=== PATIENT | female | born 1985 | race Caucasian/White ===

== ENCOUNTER 2019-05-06 16:21 | Emergency (ER) | payer OTHER ==
[2019-05-06 17:13] LABS: BILIRUBIN,URINE NEGATIVE (NEGATIVE); GLUCOSE, URINE (UA) NEGATIVE (NEGATIVE); KETONES,URINE (UA) NEGATIVE (NEGATIVE); LEUKOCYTE ESTERASE, URINE NEGATIVE (NEGATIVE); NITRITE,URINE NEGATIVE (NEGATIVE); OCCULT BLOOD,URINE NEGATIVE (NEGATIVE); PH,URINE 6.5 PH (5.0-7.5); PROTEIN,URINE NEGATIVE (NEGATIVE); UROBILINOGEN,URINE 0.2 (NORMAL) E.U./dL (NORMAL)
[2019-05-06 17:14] LABS: BASOPHILS # (AUTO) 0.1 10^3/uL (0.0-0.1); BASOPHILS % (AUTO) 0.5 %; EOSINOPHILS # (AUTO) 0.2 10^3/uL (0.0-0.7); EOSINOPHILS % (AUTO) 1.7 %; HGB - HEMOGLOBIN 14.3 g/dL (12.0-16.0); LYMPHOCYTES # (AUTO) 2.5 10^3/uL (1.5-3.5); LYMPHOCYTES % (AUTO) 27.2 %; MEAN CORPUSCULAR HGB CONC 34.4 g/dL (32.0-36.0); MEAN CORPUSCULAR VOLUME 90.2 fL (81.0-99.0); MEAN PLATELET VOLUME 11.6 fL (7.9-10.8); MONOCYTES # (AUTO) 0.5 10^3/uL (0.0-1.0); MONOCYTES % (AUTO) 5.6 %; NEUTROPHILS % (AUTO) 64.6 %; PLT - PLATELET COUNT 202 10^3/uL (130-450); RED BLOOD COUNT 4.61 10^6/uL (4.20-5.40); RED CELL DISTRIBUTION WIDTH 11.9 % (12.0-15.0); WHITE BLOOD COUNT 9.4 x10^3/uL (4.8-10.8)
[2019-05-06 17:16] LABS: CLARITY,URINE CLEAR (CLEAR)
[2019-05-06 17:19] LABS: HCG UR QUAL NEGATIVE
[2019-05-06 17:25] LABS: ALBUMIN 4.1 g/dL (3.2-5.5); ALBUMIN/GLOBULIN RATIO 1.1 (1.0-2.2); BILIRUBIN,TOTAL 0.3 mg/dL (0.2-1.0); CALCIUM 8.9 mg/dL (8.5-10.3); CREATININE 0.7 mg/dL (0.4-1.0); TOTAL PROTEIN 7.8 g/dL (6.7-8.2)
[2019-05-06] MEDS ORDERED: KETOROLAC 60 MG/2 ML VIAL IM STA (18:12)
--- NOTE | 2019-05-06 18:13 | ED Physician Documentation ---
PD HPI ABD PAIN - Stated complaint Stated Complaint: RT ABD PX - Chief complaint Chief Complaint: Abd Pain - History obtained from History obtained from: Patient - History of Present Illness Timing - onset: Other (This is a very pleasant 34-year-old woman who presents with sudden onset right pelvic pain starting yesterday with nausea. She has a history of remote appendectomy, cholecystectomy. No history of ovarian cyst. Because of potential psychiatric stress she is been amenorrheic for the last 5 months. She has no concern for STDs.) Review of Systems Constitutional: denies: Fever, Chills GI: reports: Abdominal Pain, Nausea. denies: Vomiting, Constipation, Diarrhea : denies: Dysuria, Frequency PD PAST MEDICAL HISTORY - Present Medications Home Medications: Ambulatory Orders Medication Instructions Recorded Confirmed Ibuprofen [Motrin] 800 mg PO Q8H PRN #30 tablet 05/06/19 Ondansetron Odt [Zofran] 4 mg TL Q6H PRN #10 tablet 05/06/19 Oxycodone HCl/Acetaminophen 1 - 2 each PO Q6H PRN #14 tablet 05/06/19 [Percocet 5-325 mg Tablet] - Allergies Allergies/Adverse Reactions: Allergies Allergy/AdvReac Type Severity Reaction Status Date / Time clindamycin Allergy Anaphylaxis Verified 05/06/19 16:51 levofloxacin Allergy Unknown Verified 05/06/19 16:51 Penicillins Allergy Unknown Verified 05/06/19 16:51 PD ED PE NORMAL - Vitals Vital signs reviewed: Yes - General General: Alert and oriented X 3, No acute distress - HEENT HEENT: PERRL, EOMI - Neck Neck: Supple, no meningeal sign, No bony TTP - Cardiac Cardiac: RRR, No murmur - Respiratory Respiratory: No respiratory distress, Clear bilaterally - Abdomen Abdomen: Other (Tender in the deep left pelvis without surgical signs, very mild right lower quadrant and right-sided abdominal tenderness) - Back Back: No CVA TTP, No spinal TTP - Derm Derm: Normal color, Warm and dry - Extremities Extremities: No edema, No calf tenderness / cord - Neuro Neuro: Alert and oriented X 3, Normal speech Results - Vitals Vitals: Vital Signs - 24 hr 05/06/19 05/06/19 05/06/19 16:48 18:15 20:00 Temperature 36.8 C Heart Rate 89 67 66 Respiratory 18 14 14 Rate Blood Pressure 144/93 H 141/83 H 136/82 H O2 Saturation 99 100 100 Oxygen O2 Source Room air - Labs Labs: Laboratory Tests 05/06/19 05/06/19 05/06/19 17:02 17:06 17:06 WBC 9.4 RBC 4.61 Hgb 14.3 Hct 41.6 MCV 90.2 MCH 31.0 MCHC 34.4 RDW 11.9 L Plt Count 202 MPV 11.6 H Neut # (Auto) 6.0 Lymph # (Auto) 2.5 [place] # (Auto) 0.5 Eos # (Auto) 0.2 Baso # (Auto) 0.1 Absolute Nucleated RBC 0.00 Nucleated RBC % 0.0 Sodium 138 Potassium 3.8 Chloride 105 Carbon Dioxide 23 Anion Gap 10.0 BUN 16 Creatinine 0.7 Estimated GFR (MDRD) 97 Glucose 96 Calcium 8.9 Total Bilirubin 0.3 AST 29 ALT 32 Alkaline Phosphatase 52 Total Protein 7.8 Albumin 4.1 Globulin 3.7 Albumin/Globulin Ratio 1.1 Lipase 39 Urine Color YELLOW Urine Clarity CLEAR Urine pH 6.5 Ur Specific [place] 1.020 Urine Protein NEGATIVE Urine Glucose (UA) NEGATIVE Urine Ketones NEGATIVE Urine Occult Blood NEGATIVE Urine Nitrite NEGATIVE Urine Bilirubin NEGATIVE Urine Urobilinogen 0.2 (NORMAL) Ur Leukocyte Esterase NEGATIVE Ur Microscopic Review NOT INDICATED Urine Culture Comments NOT INDICATED Urine HCG, Qual NEGATIVE - Rads (name of study) Pelvic sono Radiology: EMP read contemporaneously (Simple 3.6 cm right ovarian cyst. Unable to visualize the left ovary, normal uterus.) PD MEDICAL DECISION MAKING - ED course ED course: This young woman with right pelvic pain, she does not have an appendix or gallbladder. Found to have a 4 x 3 cm Right ovarian cyst without evidence of torsion. Departure - Departure Disposition: Home, Self Care Clinical Impression: Right ovarian cyst Condition: Good Record reviewed to determine appropriate education?: Yes Instructions: ED Cyst Ovarian Follow-Up: [facility] [Provider Group] Prescriptions: Ibuprofen [Motrin] 800 mg PO Q8H PRN #30 tablet PRN Reason: PAIN &/OR FEVER Ondansetron Odt [Zofran] 4 mg TL Q6H PRN #10 tablet PRN Reason: Nausea / Vomiting Oxycodone HCl/Acetaminophen [Percocet 5-325 mg Tablet] 1 - 2 each PO Q6H PRN #14 tablet PRN Reason: pain Comments: Will need a repeat ultrasound in about a month to confirm resolution of the cyst. Return for new or worsening symptoms. 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 Do not drink or drive while taking narcotic pain medication. Note that many narcotic pain relievers also contain Tylenol/acetaminophen. Please ensure that your total dose of acetaminophen from all sources does not exceed 3 g (3000 mg) per day. You may get constipated while on this medication. Take a stool softener such as Colace twice a day while you are on it. Also add an nqlu-rnt-jikqims laxative such as senna or MiraLAX on any day that you do not have a bowel movement. If you received a narcotic pain medication or sedative while in the emergency department, do not drive for the next 24 hours. Your blood pressure was elevated today on check into the emergency department. This does not mean that you have hypertension, it is a common phenomenon to come to the emergency department and have elevated blood pressure. I recommend that you see your primary care physician within the week to have it rechecked when you are feeling better. Forms: Activity restrictions Discharge Date/Time: 05/06/19 20:03
[2019-05-06] MEDS ORDERED: ONDANSETRON ODT 4 MG TABLET TL STA (18:21)
--- NOTE | 2019-05-06 19:50 | Ultrasound Report ---
Reason: pelvic pain, R Procedure Date: 05/06/2019 Accession Number: [id number] / [id number] Procedure: US - Pelvic w/Transvag+Doppler Comp CPT Code: FULL RESULT: EXAM: PELVIC ULTRASOUND WITH DOPPLERS CLINICAL HISTORY: Pelvic pain, right. COMPARISON: None. TECHNIQUE: Realtime transabdominal imaging performed to identify the uterus and adnexa and as an overview of other pelvic structures, followed by transvaginal imaging for better assessment of the endometrium and adnexa, with static image documentation. Color flow imaging and Doppler spectral analysis was performed to evaluate blood flow to the ovaries given pelvic pain and clinical concern for ovarian torsion. FINDINGS: Uterus: 8.0 x 3.8 x 4.9 cm, volume 78 cc. Anteverted position. Normal overall size and echotexture. Masses: None. Endometrium: 11.6 mm. Normal. Cervix: Unremarkable. Right Ovary: 4.1 x 3.5 x 3.4 cm, volume 25.5 cc. There is a 3.6 cm simple ovarian cyst. Arterial and venous blood flow are present. PSV 5.0 cm/sec. RI 0.55. Adnexa are unremarkable. Left Ovary: Not visualized. Free Fluid: None. Other: None. IMPRESSION: 1. Simple 3.6 cm right ovarian cyst. 2. Nonvisualization of left ovary. 3. Normal uterus. RADIA
[2019-05-06] MEDS ORDERED: oxyCODONE/ACET 5/325 Prepack 4 PO STA (19:53)
[2019-05-06] MEDS ORDERED: ONDANSETRON ODT 4 MG Prepack 2 TL STA (19:53)
[2019-05-06 20:03] VITALS: BP 136/82
== END 2019-05-06 20:03 | disposition home or self-care (01) ==
LOC: ED 16:21
DX: N83.201 Unspecified ovarian cyst, right side (principal); R03.0 Elevated blood-pressure reading, without diagnosis of hypertension
CPT/HCPCS: 36415; 76830; 76856; 80053; 81003; 81025; 83690; 85025; 93975; 96372; 99283; 99284; Q0162; 81001; 87086

== ENCOUNTER 2019-05-17 16:24 | Outpatient (CLI) | payer OTHER ==
[2019-05-17 21:49] LABS: TRICHOMONAS VAGINALIS DNA NEGATIVE (NEGATIVE)
== END 2019-05-17 23:59 | disposition home or self-care (01) ==
LOC: LAB.R 16:24
PROVIDERS: ATTEND Obstetrics & Gynecology
DX: Z11.3 Encounter for screening for infections with a predominantly sexual mode of transmission (principal)
CPT/HCPCS: 87491; 87591; 87661

== ENCOUNTER 2019-05-25 10:55 | Outpatient (CLI) | payer OTHER ==
[2019-05-25] MEDS ORDERED: IOVERSOL 320 50 ML VIAL ONE (11:14)
[2019-05-25] MEDS ORDERED: IOVERSOL 320 100 ML VIAL IVP ONE ×2 (11:14→15:46)
[2019-05-25] MEDS ORDERED: IOVERSOL 320 50 ML VIAL PO ONE (15:46)
--- NOTE | 2019-05-25 17:37 | CT Report ---
Reason: PELVIC PAIN Procedure Date: 05/25/2019 Accession Number: [id number] / [id number] Procedure: CT - Abdomen/Pelvis W CPT Code: FULL RESULT: EXAM: CT ABDOMEN AND PELVIS EXAM DATE: 05/25/2019 12:35 PM. CLINICAL HISTORY: Pelvic pain. COMPARISONS: Pelvic ultrasound 05/06/2019. TECHNIQUE: Routine helical CT imaging was performed through the abdomen and pelvis. IV contrast: 100 cc Optiray 320. Enteric contrast: Yes. Reconstructions: Coronal and sagittal. In accordance with CT protocol optimization, one or more of the following dose reduction techniques were utilized for this exam: automated exposure control, adjustment of mA and/or KV based on patient size, or use of iterative reconstructive technique. FINDINGS: Lung Bases: Partially visualized 4 mm nodule near the minor fissure. Subsegmental atelectasis or scarring lingula and left lower lobe. Liver: Mildly prominent with right lobe 19 cm in height. No focal lesion. Widely patent portal and hepatic veins. Gallbladder/Bile Ducts: No dilated bile duct status post cholecystectomy. Spleen: Upper normal in size without focal lesion. Accessory splenule. Pancreas: Unremarkable. Adrenal Glands: No nodule. Kidneys: Unremarkable. No hydronephrosis, mass, or abnormal parenchymal enhancement. Peritoneal Cavity/Bowel: Enteric contrast has progressed to the distal jejunum. No bowel obstruction or focal inflammation identified. Clips in the right lower quadrant presumably from appendectomy. No free fluid, free air, or adenopathy by size criteria. Few subcentimeter right lower quadrant nodes, likely reactive. A tiny fat-containing umbilical hernia and a small fat-containing supraumbilical hernia. Retroperitoneum: No mass or adenopathy. Pelvic Organs: Unremarkable bladder and ROUGHENER organs. Previous 3.6 cm right ovarian cyst not seen. No abnormal fluid collection or adenopathy. Vasculature: No aneurysms or significant abnormality. Bones: No significant abnormality. IMPRESSION: 1. No focal inflammatory or obstructive process identified. Presumed appendectomy. 2. Previous 3.6 cm right ovarian cyst not seen. No free fluid. 3. Mildly prominent liver without focal abnormality. Upper normal spleen size. 4. No dilated bile ducts status post cholecystectomy. 5. Other incidental findings, as noted. RADIA
== END 2019-05-25 10:56 | disposition home or self-care (01) ==
LOC: DI 10:55
PROVIDERS: ATTEND Obstetrics & Gynecology
DX: R10.2 Pelvic and perineal pain (principal)
CPT/HCPCS: 74177; Q9967

== ENCOUNTER 2019-06-01 15:27 | Outpatient (CLI) | payer OTHER ==
[2019-06-01 15:39] LABS: BASOPHILS % (AUTO) 0.5 %; EOSINOPHILS # (AUTO) 0.1 10^3/uL (0.0-0.7); EOSINOPHILS % (AUTO) 1.5 %; HGB - HEMOGLOBIN 13.8 g/dL (12.0-16.0); LYMPHOCYTES # (AUTO) 2.5 10^3/uL (1.5-3.5); LYMPHOCYTES % (AUTO) 28.3 %; MEAN CORPUSCULAR HEMOGLOBIN 30.7 pg (27.0-31.0); MEAN CORPUSCULAR HGB CONC 34.3 g/dL (32.0-36.0); MEAN CORPUSCULAR VOLUME 89.3 fL (81.0-99.0); MONOCYTES # (AUTO) 0.6 10^3/uL (0.0-1.0); MONOCYTES % (AUTO) 6.7 %; NEUTROPHILS # (AUTO) 5.4 10^3/uL (1.5-6.6); NEUTROPHILS % (AUTO) 62.5 %; PLT - PLATELET COUNT 211 10^3/uL (130-450); RED CELL DISTRIBUTION WIDTH 11.4 % (12.0-15.0); WHITE BLOOD COUNT 8.7 x10^3/uL (4.8-10.8)
[2019-06-01 15:40] LABS: HCG UR QUAL NEGATIVE
== END 2019-06-01 15:28 | disposition home or self-care (01) ==
LOC: LAB 15:27
PROVIDERS: ATTEND Obstetrics & Gynecology
DX: Z01.812 Encounter for preprocedural laboratory examination (principal); R10.2 Pelvic and perineal pain; N91.2 Amenorrhea, unspecified
CPT/HCPCS: 36415; 81025; 85025

== ENCOUNTER 2019-06-02 09:08 | Day surgery (SDC) | payer OTHER ==
--- NOTE | 2019-06-02 08:48 | SURGERY HX AND PHYSICAL(T) ---
Surgical History & Physical - Chief Complaint/HPI History of Present Illness: HPI: Patient was last seen in clinic on 05/17/19. She has since had a CT scan that was unrevealing. Pain and nausea continues. Planning for diagnositc laparoscopy and hysteroscopy wiht possible salpingo=oophorectomy on 06/02/19. No chnage in health hx since time of last visit. Prior hx below: Patient is a 34-year-old G2, P1 here for assessment of abdominal pain. Patient was seen in the ER for pelvic pain on 05/06/2019. She underwent a pelvic ultrasound that showed a 3.6 cm simple ovarian cyst on the right. Left ovary was not visualized. Endometrium was 11.6 mm. The uterus was otherwise unremarkable. She was told that there is no sign of torsion. 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 It was constant throughout the weekend and worsened with movement. She had a second ultrasound on [facility] due to continued pain. The ultrasound showed a simple cyst on the right ovary 3.8 cm the left ovary had a pedunculated 1 cm cyst. There is no free fluid in the abdomen. At present she rates pain 4 out of 10. Sharp shooting pain. It is gotten a little bit better but has not resolved. She is sexually active; no IC. since start of pain. No current contraception. "Not avoiding" for a year. She had used a NuvaRing in the past. IC 3-4 times/month. Unsure LMP, maybe in December. Occasional spotting No STIs. Neg HCG/UA. Menarche was age 13. Cycles are usually 29 days with 5 days duration and flow.. Last Pap smear was December 2016. Abnl pap 4 yrs ago with nml fu. Risk Factors: Smoked Tobacco Use: Never smoker Smokeless Tobacco Use: Never Passive Smoke Exposure: no HIV High Risk Behavior: no Caffeine Use: 1 drinks per day Exercise: yes Times/wk: 7 Type of Exercise: walking Seatbelt Use: 100 % Sun Exposure: frequently Alcohol Use: yes Drinks per day: social Drug Use: no Vital Signs: Patient Profile: 34 Years Old Female Height: 69 inches Weight: 278.4 pounds BMI: 41.26 BP sittin / 88 Vitals Entered By: Tatyana Strange LPN (June 01, 2019 2:27 PM) Meds Reviewed: Done Allergies Reviewed: Done Past Medical History: Abnormal Pap Smear Ovarian Cysts Weight Disorder Past Surgical History: Colpo 2017 laser on nose for nose bleeds cyst removal sinus cavity cholecystectomy Appendectomy Lymphectomy (right groin) 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 Physical Constitutional: well hydrated, well developed. Constitutional: alert, no acute distress, well hydrated, well developed. Skin: normal turgor, normal color, no rashes. Head: atraumatic, normocephalic. Eyes: No conjunctival injection or scleral icterus Neck: supple, no adenopathy. Cardiovascular: RRR, no murmurs. Respiratory: no respiratory distress, clear to auscultation. Abdomen: nondistended, no guarding. Mildly tender in lower quadrants Extremities: no deformities. Neurologic: normal. Psych: affect and mood appropriate, normal interaction, good eye contact. Vulva: normal appearance, no lesions or masses. Urethra: normal. Bladder: no masses. Vagina: normal, rugated. Cervix: no motion tenderness. Uterus: mobile. Mild tenderness with manipulation Adnexa: normal. Impression & Recommendations: Problem # 1: Pelvic pain (ICD-625.9) ([id number]) Risks/benefits/alternatives were discussed. Risks simply included but are not limited to bleeding, infection, damage nearby tissue and organs. These risks were reviewed in detail. Patient was counseled extensively that we may not find a cause for her pain. Written informed consent was obtained for diagnostic laparoscopy with possible salpingo-oophorectomy. Also obtained consent for diagnostic hysteroscopy D&C/polypectomy possible myomectomy. Orders: - PMH/PSH/Social Hx Does the pt have a hx of MRSA?: No Eyes, Ears, Nose, Throat: Chronic vision loss Cardiovascular: None Respiratory: None Skin: None Endocrine/Autoimmune: None Gastrointestinal: None Urinary: Other Musculoskeletal: None Psychiatric: None General: Cholecystectomy, Appendectomy Eyes Ears Nose Throat (EENT): Tonsil/Adenoidectomy Smoking Status: Never smoker Does the pt drink ETOH?: Yes Frequency: Occasional Does the pt have substance abuse?: No - Home Meds and Allergies Home Medications: Acetaminophen [Tylenol] 650 mg PO Q6H PRN 06/01/19 Allergies/Adverse Reactions: Allergies Allergy/AdvReac Type Severity Reaction Status Date / Time clindamycin Allergy Rash Verified 06/01/19 15:22 levofloxacin Allergy Rash Verified 06/01/19 11:37 oxycodone [From Percocet] Allergy bad Verified 06/01/19 15:22 headaches Penicillins Allergy Rash Verified 06/01/19 11:37 - Vital Signs Height: 5 ft 9 in - Patient Review Patient Review: Problems were reviewed with the patient during this visit. Medications were reviewed with the patient during this visit. Allergies were reviewed this patient during this visit. Pertinent Tests Reviewed: All pertitent test for this patient were reviewed.
[2019-06-02] MEDS ORDERED: PROPOFOL 200 MG/20 ML VIAL IVP ONE (09:09)
[2019-06-02] MEDS ORDERED: DEXAMETHASONE 4 MG/ML VIAL IVP ONE (09:09)
[2019-06-02] MEDS ORDERED: GLYCOPYRROLATE 1 MG/5 ML VIAL IVP ONE (09:09)
[2019-06-02] MEDS ORDERED: KETOROLAC 30 MG/ML VIAL IVP ONE (09:09)
[2019-06-02] MEDS ORDERED: ROCURONIUM 50 MG/5 ML VIAL IVP ONE (09:09)
[2019-06-02] MEDS ORDERED: NEOSTIGMINE 0.5 MG/1 ML 10 ML MDV IVP ONE (09:09)
[2019-06-02] MEDS ORDERED: fentaNYL 100 MCG/2 ML VIAL IVP ONE (09:09)
[2019-06-02] MEDS ORDERED: MIDAZOLAM 2 MG/2 ML VIAL IVP ONE (09:09)
[2019-06-02] MEDS ORDERED: LACTATED RINGERS 1,000 ML IV ONE ×2 (09:30→13:51)
[2019-06-02] MEDS ORDERED: ACETAMINOPHEN 1,000 MG/100 ML 100 ML IV ONE (10:09)
[2019-06-02] MEDS ORDERED: CELECOXIB 100 MG CAPSULE PO ONE (10:10)
[2019-06-02] MEDS ORDERED: GABAPENTIN 400 MG CAPSULE ONE (10:11)
--- NOTE | 2019-06-02 10:32 | ANESTHESIA ---
Pre-Anesthesia VS, & Labs - Diagnosis pelvic pain - Procedure D and C, hysteroscopy, possible oopherectomy Vital Signs: Temp Pulse Resp BP Pulse Ox 36.2 C L 107 H 18 134/96 H 97 06/02/19 09:30 06/02/19 09:30 06/02/19 09:30 06/02/19 09:30 06/02/19 09:30 Height 5 ft 9 in Weight (kg) 125 kg Body Mass Index 39.9 - NPO >8 hours - Is Patient ?: No Home Medications and Allergies Home Medications: Ambulatory Orders Acetaminophen [Tylenol] 650 mg PO Q6H PRN 06/01/19 Acetaminophen [Tylenol] 650 mg PO Q6H PRN 06/01/19 Allergies/Adverse Reactions: Allergies Allergy/AdvReac Type Severity Reaction Status Date / Time clindamycin Allergy Rash Verified 06/01/19 15:22 levofloxacin Allergy Rash Verified 06/01/19 11:37 oxycodone [From Percocet] Allergy bad Verified 06/01/19 15:22 headaches Penicillins Allergy Rash Verified 06/01/19 11:37 Anes History & Medical History - Anesthetic History Anesthesia Complications: reports: Post-Operative Nausea/Vomiting - Medical History Cardiovascular: reports: None Pulmonary: reports: None Gastrointestinal: reports: None Urinary: reports: Other Musculoskeletal: reports: None Endocrine/Autoimmune: reports: None Skin: reports: None Smoking Status: Never smoker - Surgical History General: Cholecystectomy, Appendectomy Eyes Ears Nose Throat (EENT): Tonsil/Adenoidectomy Exam General: Alert Dental: WNL Mouth Opening: Greater than 4 Fingerbreadths Neck Mobility: Normal Mallampati classification: II Thyromental Distance: greater than 6 cm Respiratory: Lungs clear Cardiovascular: Regular rate, Normal S1, Normal S2 Plan Anesthesia Type: General Consent for Procedure(s) Verified and Reviewed: Yes Code Status: Attempt Resuscitation ASA classification: 2-Mild systemic disease Is this case an emergency?: No
[2019-06-02] MEDS ORDERED: BUPIVACAINE 0.5%-EPI 1:200000 PF 10 ML VIAL ONE (10:49)
[2019-06-02] MEDS ORDERED: LIDOCAINE 1%-EPI 1:100000 20 ML MDV ONE (10:49)
[2019-06-02] MEDS ORDERED: SCOPOLAMINE PATCH TOP ONE (11:03)
[2019-06-02] MEDS ORDERED: BUPIVACAINE 0.25% PF 10 ML VIAL SUBQ ONE (12:55)
[2019-06-02] MEDS ORDERED: LIDOCAINE 1%-EPI 1:100000 30 ML MDV SUBQ ONE (12:55)
[2019-06-02] MEDS ORDERED: oxyCODONE 10 MG/0.5 ML SYRINGE PO PRN (14:03)
[2019-06-02] MEDS ORDERED: HYDROmorphone 0.5 MG/0.5 ML SYRINGE IVP PRN ×2 (14:03→14:21)
[2019-06-02] MEDS ORDERED: oxyCODONE 5 MG TABLET PO PRN (14:03)
[2019-06-02] MEDS ORDERED: ACETAMINOPHEN 160 MG/5 ML SUSP UDC PO PRN (14:03)
[2019-06-02] MEDS ORDERED: ONDANSETRON 4 MG/2 ML VIAL IVP PRN (14:03)
[2019-06-02] MEDS ORDERED: HYDROmorphone 2 MG TABLET PO PRN (14:21)
[2019-06-02] MEDS: fentaNYL 100 MCG/2 ML VIAL ONE ×2 (14:49→14:54)
[2019-06-02] MEDS ORDERED: HYDROmorphone 0.5 MG/0.5 ML SYRINGE ONE (15:14)
[2019-06-02] MEDS ORDERED: ONDANSETRON 4 MG/2 ML VIAL ONE (15:22)
[2019-06-02] MEDS ORDERED: PROMETHAZINE 25 MG/1 ML VIAL ONE (15:30)
[2019-06-02] MEDS ORDERED: HYDROmorphone 2 MG TABLET ONE (17:08)
[2019-06-02 17:36] VITALS: BP 140/82
--- NOTE | 2019-06-04 12:37 | OPERATIVE REPORT ---
Operative Report - General Planned Procedure: Diagnostic laparoscopy with possible salpingo-oophorectomy. Diagnostic hysteroscopy with possible D&C, polyp polypectomy, myomectomy Pre-Op Diagnosis: Pelvic pain. Secondary amenorrhea Procedure Performed: Laparoscopic lysis of adhesions. Hysteroscopy D&C. Post Op Diagnosis: Same and right-sided bowel adhesions - Procedure Note Primary Surgeon: Aurora Pyle MD Anesthesia Provider: Tatiana Castillo CRNA/ Breezy Enciso CRNA Anesthesia Technique: General ET tube Pathology: Uterine curettings IV Fluids (mL): 1,200 Estimated Blood Loss (mL): 25 Urine Output (mL): 125 Indications: Patient is a 34-year-old G2, P1 with ongoing abdominal pain for about 1 month in duration. Seen in the ER for pelvic pain on 05/06/2019. Pelvic ultrasound showed a 3.6 cm simple ovarian cyst on the right. Left ovary was not visualized. Endometrium was 11.6 mm. The uterus was otherwise unremarkable. She was told that there is no sign of torsion. Pain has interfered with work and ADLs. 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 She had a second ultrasound on [facility] due to continued pain. The [facility] ultrasound showed a simple cyst on the right ovary 3.8 cm the left ovary had a pedunculated 1 cm cyst.No free fluid in the abdomen. Subsequent CT scan was unremarkable. Pain has been unremitting and is managed iwth ibuprofen 600 mg po Q6H and acetaminophen 1000 mg po Q8 hours taken continously over 4 weeks. Pain and nausea continue. She has also been without menses for several months. No recent sexual activity and no use of contraception. She presents for surgical exploration with diagnostic laparoscopy and possible salpingo-oophorectomy as well as hysteroscopy D&C with possible polypectomy/myomectomy. Has provided written consent for her mother to provide consent needed for any additional procedure necessary for pain remittance unforeseen prior to surgery start. Findings: Bowel adherent, with slight torsion, to the right pelvic and abdominal sidewall. Adhesions started at the place of prior appendectomy (as noted by presence of surgical staple at appendectomy site) and extended up to the right upper quadrant. Omentum and bowel adherent to the anterior abdominal wall on the right upper quadrant. Normal-appearing uterus, tubes, and ovaries. Right ovary with physiologic appearing cyst less than 2 cm in greatest dimension and well contained within the ovarian stroma. No evidence of endometriosis. Pelvic sidewalls, bladder, uterus tubes and ovaries, and cul-de-sac free of any endometrial implants. Normal liver edge. Gallbladder surgically absent. Complications: None - Other Other Information/Narrative: Risks benefits and alternatives of the procedure were reviewed. Consent was again confirmed. Patient was brought to the operating room and underwent general anesthesia. She was placed in dorsal lithotomy position with legs resting in yellowfin stirrups. SCDs were in place and activated. Preoperative antibiotics were not indicated. She was prepped and draped in the usual sterile fashion. Surgical timeout was performed. Bimanual exam was performed. Sterile speculum was placed and Cervix was visualized. Single-tooth tenaculum was placed on the anterior cervical lip and Velia cannula was placed to manipulate the uterus. Gloves were changed and attention was turned to the abdominal portion of the procedure. The base of the umbilicus was anesthetized with intradermal injection of 0.25% Marcaine. A 5 mm skin incision was made with a scalpel. A 5 mm blunt trocar was inserted under direct visualization using Visiport. Once the port was confirmed to be placed intraperitoneally, the abdomen was insufflated to 15 mmHg with CO2 gas Exploration of the abdomen and pelvis was confirmed that no injury was sustained with placement of the trocar. An additional 5 mm ports was placed in the left lower quadrant, taking care to avoid the epigastric arteries, while under direct visualization via laparoscopic guidance. The abdomen and pelvis were explored with the laparoscope, with findings as noted above. Bowel was noted to be adherent to the right pelvic sidewall with filmy adhesions. Care was taken to dissect the bowel off the pelvic sidewall, staying clear of a bowel tissue, by transecting the filmy adhesions. This was done in a combination of blunt and sharp dissection. When adhesions adherent to the anterior abdominal wall were reached, thicker scar tissue was noted. Careful lysis of adhesions was performed with sharp and blunt dissection, intermittently augmented with cautery to limit bleeding. Dr. Marcus Shea of General Surgery was present in the OR for bedside intraoperative consult. Lysis of adhesions was performed until the pelvic sidewall was free of any residual adhesions and bowel was mobilized. Inspection of the bowel indicated that there was no damage to bowel tissue. Abdomen and pelvis were irrigated. A total of 20 cc of quarter percent Marcaine was injected through the abdominal wall for topical application to the pelvic sidewall. Good hemostasis was noted. The abdomen was partially desufflated. Pelvic sidewall and areas of adhesion release were observed under decreased pressure and good hemostasis was again co nfirmed. Abdomen was fully desufflated. All instruments were removed from the abdomen. Skin was closed with interrupted subcuticular stitches using 4-0 Monocryl. Dermabond was applied over the suture sites. Attention was then turned to the hysteroscopic portion of the procedure. Sterile speculum was again inserted. Kinsey cannula was removed. Uterus sounded to 8 cm. The cervix was serially dilated to accommodate the diagnostic hysteroscope. The diagnostic hysteroscope was inserted into the uterine cavity. The uterine cavity was insufflated with normal saline. Findings noted as above. The hysteroscope was removed. Dilation and curettage with sharp curette was performed. Specimen was collected and sent to pathology for review. All instruments removed from the vagina. Good hemostasis was noted. The final sponge needle and instrument counts were correct at completion of the procedure. Procedure was well-tolerated and without complication. Patient was extubated, awakened, and taken to the postanesthesia care unit in stable condition.
== END 2019-06-02 09:09 | disposition home or self-care (01) ==
LOC: SDS 09:08
PROVIDERS: ATTEND Obstetrics & Gynecology
PROC: 0UJD8ZZ Inspection of Uterus and Cervix, Via Natural or Artificial Opening Endoscopic (ICD-10-PCS; 2019-06-02)
PROC: 0DNF4ZZ Release Right Large Intestine, Percutaneous Endoscopic Approach (ICD-10-PCS; principal; 2019-06-02 10:30)
PROC: 0UDB7ZX Extraction of Endometrium, Via Natural or Artificial Opening, Diagnostic (ICD-10-PCS; 2019-06-02 10:30)
DX: R10.2 Pelvic and perineal pain (principal); N91.2 Amenorrhea, unspecified; K66.0 Peritoneal adhesions (postprocedural) (postinfection); Z90.49 Acquired absence of other specified parts of digestive tract; H54.7 Unspecified visual loss
CPT/HCPCS: 44180; 58558; A9270; J0131; J1170; J3490; J7120